=== PATIENT | female | born 1955 | race Two or more races ===

== ENCOUNTER 2019-03-23 18:38 | Emergency (ER) | payer MEDICAID ==
[~2019-03-23] VITALS: Ht 157.5 cm; Wt 75.3 kg
[2019-03-23 18:49] VITALS: BP 150/82
--- NOTE | 2019-03-23 18:51 | NUR ---
ED Nurse Note: pt walked in due to right eye redness started saturday, pt denies pain. pt stated she had some blurred vision. denies trauma. will continue to monitor.
[2019-03-23] MEDS ORDERED: Fluorescein Strips RIGHT EYE ONE (19:00)
[2019-03-23] MEDS ORDERED: Tetracaine 0.5% Opth 4ml Soln RIGHT EYE ONE (19:00)
--- NOTE | 2019-03-23 19:23 | Emergency Room Report ---
History of Present Illness General Chief Complaint: Eye Problems Source: Patient Present Illness HPI 64 YO Female presents to the ED c/o a scratching, sand/dryness sensation with increased lacrimation x 3 days. She denies pain. She reports awakening to erythema this am. Denies trauma to the eye. PT. reports persistent cough recently x 1 week. Denies contact lens use. pt. has hx of HTN. She denies visual field loss or vision loss. She reports mild blurry vision with improvement after wiping up the increased lacrimation with a tissue/ wiping her eye. Denies photophobia, eye discharge,floaters, or flashing lights. Allergies: Coded Allergies: No Known Allergies (Unverified , 03/23/19) Patient History Past Medical History: see triage record Past Surgical History: none Pertinent Family History: none Now: No Reviewed Nursing Documentation: PMH: Agreed; PSxH: Agreed Nursing Documentation-PMH Past Medical History: No History, Except For Hx Diabetes: Yes - pre DM, AR Review of Systems All Other Systems: negative except mentioned in HPI Physical Exam Vital Signs Date Time Temp Pulse Resp B/P (MAP) Pulse Ox O2 Delivery O2 Flow Rate FiO2 03/23/19 18:44 97.5 71 18 150/82 (104) 95 Room Air Sp02 EP Interpretation: reviewed, normal General Appearance: no apparent distress, alert, GCS 15, non-toxic Head: normocephalic, atraumatic Eyes: right eye fluoroscene uptake, right eye other - Two small areas of increased uptake in the 6 and 8 o'clock position of the right eye., there is no involvement of the iris or pupil. Negative Mando sign. ; bilateral eye normal inspection, bilateral eye PERRL, bilateral eye EOMI, bilateral eye visual acuity - 20/50 ENT: hearing grossly normal, normal voice Neck: full range of motion Respiratory: chest non-tender, lungs clear, normal breath sounds, speaking full sentences Cardiovascular #1: regular rate, rhythm, no edema Gastrointestinal: normal bowel sounds, non tender, soft Rectal: deferred Genitourinary: normal inspection Musculoskeletal: back normal, gait/station normal, normal range of motion, non- tender Neurologic: alert, oriented x3, responsive, motor strength/tone normal, sensory intact, speech normal, grossly normal Psychiatric: judgement/insight normal Lymphatic: no adenopathy Medical Decision Making PA Attestation Dr. Bell Is my supervising Physician whom patient management has been discussed with. Diagnostic Impression: Primary Impression: Corneal abrasion Qualified Codes: S05.01XA - Injury of conjunctiva and corneal abrasion without foreign body, right eye, initial encounter Additional Impression: Subconjunctival hemorrhage of right eye ER Course 64 YO Female presents to the ED c/o a scratching, sand/dryness sensation with increased lacrimation x 3 days. She denies pain. She reports awakening to erythema this am. Denies trauma to the eye. PT. reports persistent cough recently x 1 week. Denies contact lens use. pt. has hx of HTN. She denies visual field loss or vision loss. She reports mild blurry vision with improvement after wiping up the increased lacrimation with a tissue/ wiping her eye. Denies photophobia, eye discharge,floaters, or flashing lights. Ddx considered but are not limited to: corneal abrasion, acute glaucoma, globe rupture, FB, Corneal Ulcer, conjunctivitis, Iridis, subconjunctival hemorrhage. Vital signs: are WNL, pt. is afebrile H&PE are most consistent with: corneal abrasion and subconjunctival hemorrhage. ORDERS: -Tetracaine and Fluorescein Stain of the right eye: -Two small areas of increased uptake in the 6 and 8 o'clock position of the right eye., there is no involvement of the iris or pupil. Negative Mando sign. Pt. had positive relief of pain with tetracaine drops. There was negative evidence of Fb, deep ulcer, or rupture. - No fixed mid-dilated pupil. ED INTERVENTIONS: none at this time. DISCHARGE: At this time pt. is stable for d/c to home. Will provide printed patient care instructions, and any necessary prescriptions. Care plan and follow up instructions have been discussed with the patient prior to discharge. . Last Vital Signs Date Time Temp Pulse Resp B/P (MAP) Pulse Ox O2 Delivery O2 Flow Rate FiO2 03/23/19 18:49 97.5 71 18 150/82 95 Room Air Disposition: HOME, SELF-CARE Condition: Stable Scripts Acetaminophen* (TYLENOL EXTRA STRENGTH*) 500 Mg Tablet 500 MG ORAL Q6H, #20 TAB 0 Refills Prov: Lucia Oneal 03/23/19 Ofloxacin (OCUFLOX) 5 Ml Drops 2 DROP OP BID for 5 Days, #5 ML Prov: Lucia Oneal 03/23/19 Patient Instructions: Corneal Abrasion, [id number], Subconjunctival Hemorrhage Additional Instructions: Take medications as directed. Follow up with a Manufacturing Area Manager in 3 days, even if your symptoms have resolved. --Please review list of primary care clinics, if you do not already have a primary care provider Return sooner to ED if new symptoms occur, or current symptoms become worse. - Please note that this Emergency Department Report was dictated using [employer] changer technology software, occasionally this can lead to erroneous entry secondary to interpretation by the dictation equipment. Lucia Oneal Mar 23, 2019 19:23
[2019-03-23] MEDS ORDERED: OCUFLOX5 ML OP (19:25)
[2019-03-23] MEDS ORDERED: TYLENOL EXTRA500 MG ORAL (19:25)
[2019-03-23 19:45] VITALS: BP 150/82
--- NOTE | 2019-03-23 19:45 | NUR ---
ER DISCHARGE NOTE: Patient is cleared to be discharged per ERMD, pt is aox4, on room air, with stable vital signs. pt was given dc and prescription instructions, pt was able to verbalize understanding, pt id band removed. pt is able to ambulate with steady gait. pt took all belongings.
== END 2019-03-23 19:45 | disposition home or self-care (01) ==
LOC: EMR 19:16
DX: S05.01XA Injury of conjunctiva and corneal abrasion without foreign body, right eye, initial encounter (principal); H11.31 Conjunctival hemorrhage, right eye; I10 Essential (primary) hypertension; R73.03 Prediabetes; X58.XXXA Exposure to other specified factors, initial encounter; Y92.9 Unspecified place or not applicable
CPT/HCPCS: 99282